=== PATIENT | male | born 1955 | race Caucasian/White ===

== ENCOUNTER 2025-10-01 12:41 | Outpatient (CLI) | payer MEDICARE, OTHER ==
--- NOTE | 2025-10-01 14:05 | RADIOLOGY REPORT ---
CLINICAL HISTORY: HEPATIC FIBROSIS, UNSPECIFIED TECHNIQUE: CT of the abdomen and pelvis was performed without IV contrast. This exam was performed according to our departmental dose optimization program. Up-to-date CT equipment and radiation dose reduction techniques are utilized as appropriate. CTDI 24 DLP 1216 COMPARISON: None FINDINGS: Abdomen/Pelvis: The spleen, pancreas, gallbladder, adrenal glands, bladder, and prostate gland are grossly unremarkable. There is diffuse hepatic steatosis. There is subtle liver contour nodularity. There is mild nonspecific stranding around both kidneys. The abdominal aorta is normal in course and caliber. There are moderate atherosclerotic calcifications. There is no free intraperitoneal air or fluid. There is no enlarged abdominal pelvic lymph node. There is mild nonspecific inflammation within the mesentery. There is no bowel wall thickening or dilatation. The appendix is normal. There is a moderate amount of stool in the colon. Other: The imaged lower thorax demonstrates mild right lower lobe tree-in-bud nodularity. No acute osseous abnormality is evident. IMPRESSION: Diffuse hepatic steatosis with subtle liver contour nodularity, raising possibility of cirrhosis. Mild appearing mesenteric panniculitis. Constipation. Mild appearing right lower lobe bronchiolitis.
== END 2025-10-01 23:59 | disposition home or self-care (01) ==
LOC: RAD 12:41
PROVIDERS: ATTEND Family Medicine
DX: K76.0 Fatty (change of) liver, not elsewhere classified (principal); K74.00 Hepatic fibrosis, unspecified; K76.89 Other specified diseases of liver; K65.4 Sclerosing mesenteritis; J21.9 Acute bronchiolitis, unspecified
CPT/HCPCS: 74176